=== PATIENT | female | born 1975 | race Two or more races ===

== ENCOUNTER 2020-08-21 14:10 | Emergency (ER) | payer SELFPAY ==
[~2020-08-21] VITALS: Ht 160 cm; Wt 77.2 kg
[2020-08-21 14:11] VITALS: BP 136/83
[2020-08-21] MEDS ORDERED: LIDOCAINE 2% Multi-Dose 20 ML VIAL. IJ ONE (15:15)
[2020-08-21] MEDS ORDERED: DIPH,PERTUSS(ACELL),TET VAC/PF 0.5 ML SYRINGE. VAX IM ONE (15:45)
[2020-08-21] MEDS ORDERED: CEPH750C9 PO (15:47)
--- NOTE | 2020-08-21 15:47 | ED.ADGEN ---
Past Medical History Past Medical History: No Pertinent History Past Surgical History: No Surgical History Smoking Status: Never Smoker Alcohol Use: Rarely General Adult EDM: Chief Complaint: LACERATION/AVULSION HPI: HPI: Patient is a 45 year old female who presents emergency department with complaints of a laceration to the back of her left heel since 9 PM last night. Patient states she was at a store when she accidentally had a door hit the back of her left heel. She is unsure when her last tetanus shot was. She denies any decreased range of motion of her left foot or ankle. She denies any ankle pain. The patient denies any fever. She reports that she tried to put a Band-Aid over the site but it continues to bleed. Patient currently rates her pain a 4 out of 10 on the pain scale, she denies any alleviating factors, the pain is worse with palpation and movement. Review of Systems: Review of Systems: Complete ROS is negative unless otherwise noted in HPI. Current Medications: Current Medications Medications (Trade) Dose Ordered Sig/Michelle Start Time Stop Time Status Last Admin Dose Admin Lidocaine HCl (Lidocaine 2% 20ml Vial) 20 ml 1X ONCE 08/21/20 15:15 08/21/20 15:16 DC 08/21/20 14:58 20 ML Allergies: Allergies: Allergies Coded Allergies Type Severity Reaction Last Updated Verified No Known Drug Allergies 08/21/20 No Physical Exam: PE: See Above Constitutional: Well developed, well nourished, no acute distress, non-toxic appearance. [] HENT: Normocephalic, atraumatic, bilateral external ears normal, nose normal. [] Eyes: PERRLA, EOMI, conjunctiva normal, no discharge. [] Neck: Normal range of motion, no stridor. [] Cardiovascular:Heart rate regular rhythm, no murmur [] Lungs & Thorax: Respirations even and unlabored, no retractions, no respiratory distress Skin: Warm, dry, no erythema, no rash; laceration to posterior left ankle approximately 6 cm, no visible foreign body, no visible tendon, bleeding controlled Back: No tenderness, no CVA tenderness. [] Extremities: Lower left extremity: No bony tenderness, no crepitus, no obvious deformity, full plantar extension and flexion, 2+ pedal pulse, no tenderness, no cyanosis, no clubbing, ROM intact, no edema. [] Neurologic: Alert and oriented X 3, normal motor function, normal sensory function, no focal deficits noted. [] Psychologic: Affect normal, judgement normal, mood normal. [] Current Patient Data: Vital Signs: Vital Signs Date Time Temp Pulse Resp B/P (MAP) Pulse Ox O2 Delivery O2 Flow Rate FiO2 08/21/20 14:11 98.2 82 18 136/83 (100) 98 Room Air 98.2 EKG: EKG: [] Heart Score: C/O Chest Pain: No Risk Factors: Risk Factors: DM, Current or recent (<one month) smoker, HTN, HLP, family history of CAD, obesity. Risk Scores: Score 0 - 3: 2.5% MACE over next 6 weeks - Discharge Home Score 4 - 6: 20.3% MACE over next 6 weeks - Admit for Clinical Observation Score 7 - 10: 72.7% MACE over next 6 weeks - Early Invasive Strategies Radiology/Procedures: Radiology/Procedures: Laceration Repair by me: Anesthesia: 2% lidocaine locally Location: Left heel Tendon/Joint/Nerves: No injury Foreign body: None detected after copious irrigation and exploration with NS and chlorhexidine Technique: 13 simple Interrupted Sutures with 3-0 Ethilon Complexity: No subcutaneous sutures/mucosal repair/edge excision Post Closure Length: 6 cm Patient's bleeding was easily controlled in the department and there is no indication of anemia. No evidence of compartment syndrome, neurologic injury, vascular injury, open joint, tendon laceration, or foreign body. Patient is appropriate for outpatient follow up. [] [] Course & Med Decision Making: Course & Med Decision Making Pertinent Labs and Imaging studies reviewed. (See chart for details) [] Dragon Disclaimer: Dragon Disclaimer: This electronic medical record was generated, in whole or in part, using a voice recognition dictation system. Departure Departure Impression: Primary Impression: Laceration of left heel without complication Additional Impression: Need for Tdap vaccination Disposition: 01 DC HOME SELF CARE/HOMELESS Condition: STABLE Referrals: NO PCP (PCP) Patient Instructions: Laceration Care, Adult, [id number] Additional Instructions: Fill the prescription and use it as directed. Keep the area clean and dry. You may take Tylenol or ibuprofen as needed for pain. Keep the dressing that was placed today on for 24 hours then change the dressing twice a day and wash the affected area with soap and water. Leave the wound open to air after the first 2 days, follow-up with your primary care doctor, or return to the emergency room in 10-14 days to have the sutures removed, sooner if you develop signs of infection including: redness, warmth, drainage, or a fever. [facility] [address] [place] [address] [facility] [address] [place] [address] [facility] [address] [place] [address] [facility] [address] [place] [address] [facility] [address] [place] [address] [address] [place] [address] [facility] [address] [place] [address] [facility] [address] [place] [address] [facility] [address] [place] [address] [facility] [address] [place] [address] Scripts Cephalexin (KEFLEX) 750 Mg Capsule 1 CAP PO TID for 7 Days, #21 CAP 0 Refills Prov: SHI MICHELLE APRN 08/21/20 Problem Qualifiers Primary Impression: Laceration of left heel without complication Encounter type: initial encounter Qualified Codes: S91.312A - Laceration without foreign body, left foot, initial encounter SHI MICHELLE TILE SETTER SUPERVISOR Aug 21, 2020 15:47
== END 2020-08-21 16:10 | disposition home or self-care (01) ==
LOC: ER 14:10
DX: S91.012A Laceration without foreign body, left ankle, initial encounter (principal); W22.8XXA Striking against or struck by other objects, initial encounter; Y93.89 Activity, other specified; Y92.89 Other specified places as the place of occurrence of the external cause; Y99.8 Other external cause status
CPT/HCPCS: 12002; 99283

== ENCOUNTER 2020-09-04 10:43 | Emergency (ER) | payer SELFPAY ==
[~2020-09-04] VITALS: Ht 160 cm; Wt 78.0 kg
[~2020-09-04 10:43] MED LIST: CEPH750C9 PO
[2020-09-04 11:57] VITALS: BP 114/53
--- NOTE | 2020-09-04 12:11 | ED.ADGEN ---
Past Medical History Past Medical History: No Pertinent History Past Surgical History: No Surgical History Smoking Status: Never Smoker Alcohol Use: Rarely General Adult EDM: Chief Complaint: SUTURE/STAPLE REMOVAL HPI: HPI: Patient is a 45 year old female who presents emergency department with need for suture removal. Patient reports that she was here on August 21 and had sutures placed in the back of her left heel. Patient had accidentally struck the back of her left heel with a door which is what caused the laceration. She denies any numbness, tingling, weakness, or decreased range of motion of the affected foot. She denies any fever, erythema, warmth, purulent drainage, or bleeding from the suture site. She currently denies any pain. Review of Systems: Review of Systems: Complete ROS is negative unless otherwise noted in HPI. Allergies: Allergies: Allergies Coded Allergies Type Severity Reaction Last Updated Verified No Known Drug Allergies 08/21/20 No Physical Exam: PE: See Above Constitutional: Well developed, well nourished, no acute distress, non-toxic appearance. [] HENT: Normocephalic, atraumatic, bilateral external ears normal, nose normal. [] Eyes: PERRLA, EOMI, conjunctiva normal, no discharge. [] Neck: Normal range of motion, no stridor. [] Cardiovascular:Heart rate regular rhythm Lungs & Thorax: Respirations even and unlabored, no retractions, no respiratory distress Skin: Warm, dry, no erythema, no rash; 13 sutures to the heel of the left foot, mild surrounding erythema, no crusting, no warmth, no purulent drainage, laceration edges are well approximated. [] Extremities: No cyanosis, ROM intact, no edema. [] Neurologic: Alert and oriented X 3, normal sensation, normal movement, no focal deficits noted. [] Psychologic: Affect normal, judgement normal, mood normal. [] Current Patient Data: Vital Signs: Vital Signs Date Time Temp Pulse Resp B/P (MAP) Pulse Ox O2 Delivery O2 Flow Rate FiO2 09/04/20 11:57 98.3 82 16 114/53 (73) 100 Room Air 98.3 EKG: EKG: [] Heart Score: C/O Chest Pain: No Risk Scores: Score 0 - 3: 2.5% MACE over next 6 weeks - Discharge Home Score 4 - 6: 20.3% MACE over next 6 weeks - Admit for Clinical Observation Score 7 - 10: 72.7% MACE over next 6 weeks - Early Invasive Strategies Radiology/Procedures: Radiology/Procedures: [] Course & Med Decision Making: Course & Med Decision Making Pertinent Labs and Imaging studies reviewed. (See chart for details) Sutures removed by nursing staff, see nursing note [] Dragon Disclaimer: Dragon Disclaimer: This electronic medical record was generated, in whole or in part, using a voice recognition dictation system. Departure Departure Impression: Primary Impression: Encounter for removal of sutures Disposition: 01 DC HOME SELF CARE/HOMELESS Condition: STABLE Referrals: NO PCP (PCP) Patient Instructions: Suture Removal-Brief Additional Instructions: Follow the provided instructions. You can continue to apply antibiotic ointment twice daily until the redness completely resolves. SHI MICHELLE APRN Sep 04, 2020 12:11
== END 2020-09-04 12:25 | disposition home or self-care (01) ==
LOC: ER 10:43
DX: S91.312D Laceration without foreign body, left foot, subsequent encounter (principal); Y28.8XXD Contact with other sharp object, undetermined intent, subsequent encounter
CPT/HCPCS: 99282

== ENCOUNTER 2021-04-08 23:14 | Emergency (ER) | payer SELFPAY ==
[~2021-04-08] VITALS: Ht 160 cm; Wt 77.3 kg
--- NOTE | 2021-04-08 23:56 | PHYS DOC ---
Past Medical History Past Medical History: No Pertinent History Past Surgical History: No Surgical History Smoking Status: Never Smoker Alcohol Use: Rarely General Adult EDM: Chief Complaint: ABDOMINAL PAIN HPI: HPI: Patient is a 46-year-old female resenting for abdominal pain. Patient is Syriac-speaking and so history is partly obtained by myself with cube machine tender present. Reports onset of symptoms was 48 hours ago after eating traditional Syriac soup. Nothing known makes better, p.o. intake makes worse. Patient describes generalized abdominal pain that is worse in epigastric region. She has been extremely nauseous and has had x1 episode of nonbloody nonbilious emesis. She reports ongoing pain that she feels is worsening prompting her to come in for evaluation. She denies any known medical issues, takes no medications on a daily basis. Admits to prior cholecystectomy. No tobacco use, social alcohol use, no illicit drug use. Review of Systems: Review of Systems: Fourteen body systems of review of systems have been reviewed. See HPI for pertinent positives and negative responses, other morrissey all other systems are negative, non-pertinent or non-contributory Heart Score: C/O Chest Pain: No HEART Score for Chest Pain: HEART Score for Chest Pain Response (Comments) Value History Slighlty/Non-Suspicious 0 ECG Normal 0 Age >45 - < 65 1 Risk Factors 1 or 2 Risk Factors 1 Troponin < Normal Limit 0 Total 2 Risk Factors: Risk Factors: DM, Current or recent (<one month) smoker, HTN, HLP, family history of CAD, obesity. Risk Scores: Score 0 - 3: 2.5% MACE over next 6 weeks - Discharge Home Score 4 - 6: 20.3% MACE over next 6 weeks - Admit for Clinical Observation Score 7 - 10: 72.7% MACE over next 6 weeks - Early Invasive Strategies Allergies: Allergies: Allergies Coded Allergies Type Severity Reaction Last Updated Verified No Known Drug Allergies 08/21/20 No Physical Exam: PE: Constitutional: Age-appropriate, well-developed, ambulatory, in moderate distress due to pain but is nontoxic in overall appearance HENT: Normocephalic, atraumatic, bilateral external ears normal, oropharynx moist, no oral exudates, nose normal. Eyes: PERRLA, EOMI, conjunctiva normal, no discharge. Neck: Normal range of motion, no tenderness, supple, no stridor. Cardiovascular: Heart rate regular, sinus rhythm, no murmurs rubs or gallops Lungs & Thorax: Bilateral breath sounds clear to auscultation Abdomen: Bowel sounds normal, soft, generalized tenderness with voluntary guarding present, no rebound, no masses, no pulsatile masses. Nonsurgical abdomen, no peritoneal signs Skin: Warm, dry, no erythema, no rash. Back: No tenderness, no CVA tenderness. Extremities: No tenderness, no cyanosis, no clubbing, ROM intact, no edema. Neurologic: Alert and oriented X 3, grossly normal motor & sensory function, no focal deficits noted. Psychologic: Anxious affect and mood Current Patient Data: Labs: Laboratory Tests Test 04/09/21 00:02 04/09/21 00:03 04/09/21 00:12 Urine Collection Type Unknown Urine Color Yellow Urine Clarity Clear Urine pH 7.0 Urine Specific [place] <=1.005 Urine Protein Negative mg/dL Urine Glucose (UA) Negative mg/dL Urine Ketones (Stick) Negative mg/dL Urine Blood Negative Urine Nitrite Negative Urine Bilirubin Small Urine Urobilinogen Dipstick 0.2 mg/dL Urine Leukocyte Esterase Negative Urine RBC 0 /HPF Urine WBC 0 /HPF Urine Squamous Epithelial Cells Few /LPF Urine Bacteria Few /HPF Bedside Urine HCG, Qualitative Hcg negative White Blood Count 9.0 x10^3/uL Red Blood Count 4.18 x10^6/uL Hemoglobin 8.1 g/dL Hematocrit 26.8 % Mean Corpuscular Volume 64 fL Mean Corpuscular Hemoglobin 19 pg Mean Corpuscular Hemoglobin Concent 30 g/dL Red Cell Distribution Width 20.9 % Platelet Count 314 x10^3/uL Neutrophils (%) (Auto) 85 % Lymphocytes (%) (Auto) 7 % Monocytes (%) (Auto) 6 % Eosinophils (%) (Auto) 2 % Basophils (%) (Auto) 1 % Neutrophils # (Auto) 7.6 x10^3/uL Lymphocytes # (Auto) 0.6 x10^3/uL Monocytes # (Auto) 0.6 x10^3/uL Eosinophils # (Auto) 0.1 x10^3/uL Basophils # (Auto) 0.1 x10^3/uL Platelet Estimate Adequate Hypochromasia Marked Anisocytosis Mod Microcytosis Marked Sodium Level 135 mmol/L Potassium Level 3.3 mmol/L Chloride Level 100 mmol/L Carbon Dioxide Level 27 mmol/L Anion Gap 8 Blood Urea Nitrogen 7 mg/dL Creatinine 0.8 mg/dL Estimated GFR (Cockcroft-Gault) 77.2 BUN/Creatinine Ratio 9 Glucose Level 135 mg/dL Calcium Level 8.3 mg/dL Total Bilirubin 3.4 mg/dL Aspartate Amino Transf (AST/SGOT) 224 U/L Alanine Aminotransferase (ALT/SGPT) 668 U/L Alkaline Phosphatase 237 U/L Troponin I High Sensitivity < 4 ng/L Total Protein 7.9 g/dL Albumin 3.8 g/dL Albumin/Globulin Ratio 0.9 Lipase 130 U/L Current Medications Medications (Trade) Dose Ordered Sig/Michelle Route PRN Reason Start Time Stop Time Status Last Admin Dose Admin Iohexol (Omnipaque 300 Mg/ml) 75 ml 1X ONCE IV 04/09/21 01:00 04/09/21 01:01 DC 04/09/21 00:49 Info (CONTRAST GIVEN -- Rx MONITORING) 1 each PRN DAILY PRN MC SEE COMMENTS 04/09/21 00:45 04/11/21 00:44 Sodium Chloride 1,000 ml @ 1,000 mls/hr 1X ONCE IV 04/09/21 01:30 04/09/21 02:29 04/09/21 01:16 Ondansetron HCl (Zofran) 4 mg 1X ONCE IVP 04/09/21 01:30 04/09/21 01:31 DC 04/09/21 01:16 Fentanyl Citrate (Fentanyl 2ml Vial) 75 mcg 1X ONCE IVP 04/09/21 01:30 04/09/21 01:31 DC 04/09/21 01:16 Ondansetron HCl (Zofran) 4 mg 1X ONCE IVP 04/09/21 01:30 04/09/21 01:31 DC Vital Signs: Vital Signs Date Time Temp Pulse Resp B/P (MAP) Pulse Ox O2 Delivery O2 Flow Rate FiO2 04/09/21 00:00 98.2 85 13 139/67 (91) 95 Room Air 98.2 Vital Signs Date Time Temp Pulse Resp B/P (MAP) Pulse Ox O2 Delivery O2 Flow Rate FiO2 04/09/21 01:16 Room Air 04/09/21 00:00 98.2 85 13 139/67 (91) 95 98.2 EKG: EKG: EKG ordered and interpreted by myself at 0112 hrs. as sinus rhythm at 83 bpm, unremarkable intervals, no axis deviation, no obvious ischemic findings, no STEMI Radiology/Procedures: Radiology/Procedures: CT ABDOMEN+PELVIS W Clinical Indication: Reason: EPIGASTRIC PAIN / Spl. Instructions: / History: Comparison: None. Technique: Helical CT imaging of the abdomen and pelvis is performed after 75 cc of Omnipaque 300 IV contrast. Oral contrast not administered. Findings: Lung bases are clear. Cardiac size normal. The extra hepatic duct is prominent, may be due to postcholecystectomy state. No filling defect is seen. The liver, spleen, pancreas, adrenal glands, abdominal aorta, and kidneys are normal. The stomach is unremarkable. The appendix is normal. There is no dilated small bowel. Scattered stool in the colon. There is no colon wall thickening. No abdominal adenopathy or free fluid. The uterus is anteverted. 3.6 cm left adnexal cyst. No pelvic free fluid. Urinary bladder is normal. No acute bone abnormality. IMPRESSION: 1. No acute abdominal or pelvic abnormality. 2. Small left adnexal cyst is probably physiologic. No pelvic free fluid. Electronically signed by: Celso Hilton MD (04/09/2021 1:49 AM) [facility] Course & Med Decision Making: Course & Med Decision Making ABCs unremarkable HPI physical exam and comprehensive ER work-up nonconcerning for any emergent or surgical issues I disclosed entirety of ER findings with specific mention to transaminitis and patient without a gallbladder and a nonacute abdomen. Symptoms improved with administered IV fluids, pain medication and antiemetic I discussed most likely diagnoses of viral gastritis versus other intra- abdominal abnormalities. Discussed low risk for any emergent or surgical problems based on comprehensive ER work-up today Patient has good access to primary care physician, advised close outpatient follow-up for repeat labs to monitor transaminitis and to ensure continued symptomatic improvement Strict return precautions discussed and understood by patient and family member at rest prior to ER departure Simona Disclaimer: Simona Disclaimer: This electronic medical record was generated, in whole or in part, using a voice recognition dictation system. Departure Departure Impression: Primary Impression: Abdominal pain Additional Impressions: Nausea and vomiting Transaminitis Disposition: HOME / SELF CARE / HOMELESS Condition: IMPROVED Referrals: NO PCP (PCP) Patient Instructions: Abdominal Pain (Nonspecific), Nausea and Vomiting Scripts Ondansetron (ONDANSETRON ODT) 4 Mg Tab.rapdis 1 TAB PO PRN Q6-8HRS for nausea, #16 TAB Prov: MARIE ANDREWS DO 04/09/21 MARIE ANDREWS DO Apr 08, 2021 23:56
[2021-04-09 00:14] LABS: BILIRUBIN,URINE SMALL (NEG); CLARITY,URINE CLEAR; COLOR,URINE YELLOW; NITRITE,URINE NEGATIVE (NEG); PROTEIN,URINE NEGATIVE (NEG-TRACE); UROBILINOGEN,URINE 0.2 mg/dL (0.2 mg/dL)
[2021-04-09 00:19] LABS: BASO # 0.1 x10^3/uL (0.0-0.2); BASO % 1 % (0-3); EOS # 0.1 x10^3/uL (0.0-0.7); EOS % 2 % (0-3); HEMATOCRIT 26.8 % (36.0-47.0); HEMOGLOBIN 8.1 g/dL (12.0-15.5); LYMPH # 0.6 x10^3/uL (1.0-4.8); LYMPH % 7 % (24-48); MEAN CORPUSCULAR HEMOGLOBIN 19 pg (25-35); MEAN CORPUSCULAR HGB CONC 30 g/dL (31-37); MEAN CORPUSCULAR VOLUME 64 fL (79-100); MONO # 0.6 x10^3/uL (0.0-1.1); MONO % 6 % (0-9); NEUT # 7.6 x10^3/uL (1.8-7.7); NEUT % 85 % (31-73); PLATELET COUNT 314 x10^3/uL (140-400); RED BLOOD COUNT 4.18 x10^6/uL (3.50-5.40); RED CELL DISTRIBUTION WIDTH 20.9 % (11.5-14.5)
[2021-04-09 00:20] LABS: BACTERIA,URINE FEW /HPF (0-FEW); RBC,URINE 0 /HPF (0-2); WBC,URINE 0 /HPF (0-4)
[2021-04-09 00:29] LABS: CALCIUM 8.3 mg/dL (8.5-10.1); CREATININE 0.8 mg/dL (0.6-1.0); GFR 77.2; POTASSIUM 3.3 mmol/L (3.5-5.1)
[2021-04-09 00:35] LABS: ALBUMIN 3.8 g/dL (3.4-5.0); ALBUMIN/GLOBULIN RATIO 0.9 (1.0-1.7); TOTAL BILIRUBIN 3.4 mg/dL (0.2-1.0); TOTAL PROTEIN 7.9 g/dL (6.4-8.2)
[2021-04-09] MEDS ORDERED: CONTRAST GIVEN. MC PRN (00:45)
[2021-04-09 00:56] LABS: ANISOCYTOSIS MOD; HYPOCHROMIA MARKED; MICROCYTOSIS MARKED; PLT ESTIMATE ADEQUATE (ADEQUATE)
[2021-04-09] MEDS ORDERED: IOHEXOL 300 MG/ML 100ML VIAL. IV ONE (01:00)
[2021-04-09 01:09] VITALS: BP 158/67
[2021-04-09] MEDS ORDERED: ONDANSETRON PF 4 MG/2 ML VIAL. IVP ONE ×2 (01:30)
[2021-04-09] MEDS ORDERED: IV NORMAL SALINE 1000ML BAG 1,000 ML IV ONE (01:30)
[2021-04-09] MEDS ORDERED: fentaNYL PF VIAL 100 MCG/2 ML VIAL IVP ONE (01:30)
--- NOTE | 2021-04-09 01:44 | EKG ---
[facility] [address] [place] [address] Test Date: 2021-04-09 Test Time: 01:06:20 Pat Name: DOYLE KNIGHT Department: Room: Gender: F Regional Retail Sales Manager: : 1975 Requested By: MARIE ANDREWS Order Number: [id number] Reading MD: aMuro Luis MD Measurements Intervals [place] Rate: 83 P: 36 [place]: 146 QRS: 26 QRSD: 80 T: 28 QT: 358 QTc: 426 Interpretive Statements SINUS RHYTHM Electronically Signed On 04-09-2021 9:00:42 NATURAL RESOURCE SPECIALIST by Mauro Luis MD
--- NOTE | 2021-04-09 01:52 | RAD ---
PQRS Compliance Statement: One or more of the following individualized dose reduction techniques were utilized for this examinat ion: 1. Automated exposure control 2. Adjustment of the mA and/or kV according to patient size 3. Use of iterative reconstruction technique CT ABDOMEN+PELVIS W Clinical Indication: Reason: EPIGASTRIC PAIN / Spl. Instructions: / History: Comparison: None. Technique: Helical CT imaging of the abdomen and pelvis is performed after 75 cc of Omnipaque 300 IV contrast. Oral contrast not administered. Findings: Lung bases are clear. Cardiac size normal. The extra hepatic duct is prominent, may be due to postcholecystectomy state. No filling defect is se en. The liver, spleen, pancreas, adrenal glands, abdominal aorta, and kidneys are normal. The stomach is unremarkable. The appendix is normal. There is no dilated small bowel. Scattered stool in the colon. There is no colon wall thickening. No abdominal adenopathy or free fluid. The uterus is anteverted. 3.6 cm left adnexal cyst. No pelvic free fluid. Urinary bladder is normal. No acute bone abnormality. IMPRESSION: 1. No acute abdominal or pelvic abnormality. 2. Small left adnexal cyst is probably physiologic. No pelvic free fluid. Electronically signed by: Celso Hilton MD (04/09/2021 1:49 AM) [facility]
[2021-04-09] MEDS ORDERED: ONDA4TAB12 PO (02:39)
--- NOTE | 2021-04-09 16:42 | NUR ---
IP: Pt currently in the ED. Notified Sarah to please let pt know of negative covid test.
[2021-04-09] MEDS ORDERED: TRAM50TA PO (18:35)
== END 2021-04-09 02:56 | disposition home or self-care (01) ==
LOC: ER 23:14
DX: R10.84 Generalized abdominal pain (principal); Z20.822 Contact with and (suspected) exposure to COVID-19; R11.2 Nausea with vomiting, unspecified; R74.01 Elevation of levels of liver transaminase levels; Z90.49 Acquired absence of other specified parts of digestive tract
CPT/HCPCS: 36415; 74177; 80053; 81001; 81025; 83690; 84484; 85025; 87426; 93005; 96361; 96374; 96375; 99285; J2405; J3010; J7030; Q9967; U0003; U0005

== ENCOUNTER 2021-04-09 13:50 | Emergency (ER) | payer SELFPAY ==
[~2021-04-09] VITALS: Ht 160 cm; Wt 81.0 kg
[~2021-04-09 13:50] MED LIST changes: +ONDA4TAB12 PO
[2021-04-09] MEDS ORDERED: IV NORMAL SALINE 1000ML BAG 1,000 ML IV ONE (15:45)
[2021-04-09] MEDS ORDERED: ONDANSETRON PF 4 MG/2 ML VIAL. IVP ONE (15:45)
[2021-04-09] MEDS ORDERED: fentaNYL PF VIAL 100 MCG/2 ML VIAL IVP ONE ×2 (15:45→17:30)
[2021-04-09 15:48] LABS: BILIRUBIN,URINE MODERATE (NEG); CLARITY,URINE CLEAR; COLOR,URINE AMBER; NITRITE,URINE NEGATIVE (NEG); PROTEIN,URINE NEGATIVE (NEG-TRACE); UROBILINOGEN,URINE 0.2 mg/dL (0.2 mg/dL)
--- NOTE | 2021-04-09 15:52 | PHYS DOC ---
Past Medical History Past Medical History: No Pertinent History (TARAN SEVILLA APRN) Past Surgical History: Cholecystectomy (TARAN SEVILLA APRN) Smoking Status: Never Smoker Alcohol Use: None (TARAN SEVILLA APRN) General Adult EDM: Chief Complaint: ABDOMINAL PAIN HPI: HPI: Patient is a 46 year old female who presents with right upper quadrant pain that radiates through to her back. Patient was seen in the ER last night and d ischarged home. Patient states that the pain has increased since yesterday. Patient is also reporting nausea and vomiting. Denies fever or diarrhea. Nothing makes pain better or worse. Denies medical history . Denies taking any daily medications. No tobacco, alcohol, or drug use (TARAN SEVILLA APRN) Review of Systems: Review of Systems: ROS At least 10 ROS systems have been reviewed and are negative except as documented in the HPI. General: Negative except as outlined in HPI above. Skin: Negative except as outlined in HPI above. HEENT: Negative except as outlined in HPI above. Neck: Negative except as outlined in HPI above. Respiratory: Negative except as outlined in HPI above.. Cardiovascular: Negative except as outlined in HPI above. Abdomen: Negative except as outlined in HPI above. : Negative except as outlined in HPI above. Back/MSK: Negative except as outlined in HPI above. Neuro: Negative except as outlined in HPI above. Psych: Negative except as outlined in HPI above. (TARAN SEVILLA APRN) Heart Score: C/O Chest Pain: No Risk Factors: Risk Factors: DM, Current or recent (<one month) smoker, HTN, HLP, family history of CAD, obesity. Risk Scores: Score 0 - 3: 2.5% MACE over next 6 weeks - Discharge Home Score 4 - 6: 20.3% MACE over next 6 weeks - Admit for Clinical Observation Score 7 - 10: 72.7% MACE over next 6 weeks - Early Invasive Strategies (TARAN SEVILLA APRN) Allergies: Allergies: Allergies Coded Allergies Type Severity Reaction Last Updated Verified No Known Drug Allergies 08/21/20 No (TARAN SEVILLA APRN) Physical Exam: PE: Constitutional: Well developed, well nourished, no acute distress, non-toxic appearance. [] HENT: Normocephalic, atraumatic, bilateral external ears normal, oropharynx moist, no oral exudates, nose normal. [] Eyes: PERRLA, EOMI, conjunctiva normal, sclera has a yellow tent Neck: Normal range of motion, no tenderness, supple, no stridor. [] Cardiovascular:Heart rate regular rhythm, no murmur [] Lungs & Thorax: Bilateral breath sounds clear to auscultation [] Abdomen: Bowel sounds normal, soft, right upper quadrant tenderness, no masses Skin: Warm, dry, no erythema, no rash. [] Back: No tenderness, no CVA tenderness. [] Extremities: No tenderness, no cyanosis, no clubbing, ROM intact, no edema. [] Neurologic: Alert and oriented X 3, normal motor function, normal sensory function, no focal deficits noted. [] Psychologic: Affect normal, judgement normal, mood normal. [] (TARAN SEVILLA APRN) Current Patient Data: Labs: Laboratory Tests Test 04/09/21 15:07 POC Urine HCG, Qualitative Hcg negative (Negative) Vital Signs: Vital Signs Date Time Temp Pulse Resp B/P (MAP) Pulse Ox O2 Delivery O2 Flow Rate FiO2 04/09/21 15:00 97.8 75 18 119/75 (90) 100 Room Air 97.8 (TARAN SEVILLA APRN) EKG: EKG: [] (TARAN SEVILLA APRN) Radiology/Procedures: Radiology/Procedures: []INDICATION: Reason: ruq pain / Spl. Instructions: / History: COMPARISON: CT from same day TECHNIQUE: Grayscale and color ultrasound images obtained through the abdomen. FINDINGS: Pancreas: Partially seen secondary to overlying structures obscuring. Liver: Prominent in size. Mildly echogenic. Gallbladder: Removed Common Bile Duct: Prominent in size measuring up to about 9 mm which is a common finding postoperatively. Right Kidney: No hydronephrosis. Left Kidney: No hydronephrosis. Limited visualization secondary to overlying structures obscuring. Spleen: Prominent in size measuring up to 13 cm. Aorta/IVC: Partially seen without aneurysmal dilatation of the abdominal aorta IMPRESSION: * Postcholecystectomy changes with dilated bile ducts which is a common finding postoperatively. Electronically signed by: Kunal Obregon MD (04/09/2021 4:55 PM) [id number] (TARAN SEVILLA APRN) Course & Med Decision Making: Course & Med Decision Making Pertinent Labs and Imaging studies reviewed. (See chart for details) [] 46-year-old female presents with right upper quadrant pain that radiates into her back, nausea and vomiting. Patient was seen in the ER last night for similar symptoms but states that pain has increased. Pain and nausea treated in the ER. AST, ALT, have improved since yesterday. Ultrasound was unremarkable. All other labs are unremarkable. Patient was still reporting abdominal pain. Patient given second dose of fentanyl. Upon reassessment patient states that pain has improved after fluids and medi cation. Patient has Zofran at home for nausea as prescribed yesterday. Sending patient home with pain medication. Advised patient she needs to call her PCP make a follow-up appointment tomorrow. Discussed strict return precautions. Patient is hemodynamically stable. (TARAN SEVILLA APRN) Kayleenon Disclaimer: Simona Disclaimer: This electronic medical record was generated, in whole or in part, using a voice recognition dictation system. (TARAN SEVILLA APRN) Departure Departure Impression: Primary Impression: Abdominal pain Qualified Codes: R10.11 - Right upper quadrant pain Additional Impression: Nausea Disposition: 01 HOME / SELF CARE / HOMELESS Condition: STABLE Referrals: NO PCP (PCP) Patient Instructions: Abdominal Pain, [id number] Additional Instructions: You were seen in the emergency room for right upper quadrant abdominal pain. Ultrasound was unremarkable. There were no changes in your labs. Continue taking your Zofran at home that you were prescribed yesterday. Follow-up with your primary care doctor tomorrow. Return to emergency room if you have worsening symptoms or concerns. EMERGENCY DEPARTMENT GENERAL DISCHARGE INSTRUCTIONS Thank you for coming to [facility] Emergency Department (ED) today and trusting us with you care. We trust that you had a positive experience in our Emergency Department. If you wish to speak to the department management, you may call the Director at [phone]. YOUR FOLLOW UP INSTRUCTIONS ARE FOLLOWS: 1. Do you have a private Doctor? If you do not have a private doctor, please ask for a resource list of physicians or clinics that may be able to assist you with follow up care. 2. The Emergency Physicain has interpreted your x-rays. The X-Ray specialist w ill also review them. If there is a change in the findings, you will be notified in 48 hours when at all possible. 3. A lab test or culture has been done, your results will be reviewed and you will be notified if you need a change in treatment. ADDITIONAL INSTRUCTIONS AND INFORMATION: 1. Your care today has been supervised by a physician who is specially trained in emergency care. Many problems require more than one evaluation for a complete diagnosis and treatment. We recommend that you schedule your follow up appointment as recommended to ensure complete treatment of you illness or injury. If you are unable to obtain follow up care and continue to have a problem, or if your condition worsens, we recommend that you return to the ED. 2. We are not able to safely determine your condition over the phone nor are we able to give sound medical advice over the phone. For these safety reasons, if you call for medical advice we will ask you to come to the ED for further evaluation. 3. If you have any questions regarding these discharge instructions please call the ED at [phone]. SAFETY INFORMATION: In the interest of safety, wellness, and injury prevention; we encourage you to wear your sealbelt, if you smoke; quite smoking, and we encourage family to use a protective helmet for bicycling and other sporting events that present an increased risk for head injury. IF YOUR SYMPTOMS WORSEN OR NEW SYMPTOMS DEVELOP, OR YOU HAVE CONCERNS ABOUT YOUR CONDITION; OR IF YOUR CONDITION WORSENS WHILE YOU ARE WAITING FOR YOUR FOLLOW UP APPOINTMENT; EITHER CONTACT YOUR PRIMARY CARE DOCTOR, THE PHYSICIAN WHOSE NAME AND NUMBER YOU WERE GIVEN, OR RETURN TO THE ED IMMEDIATELY. Scripts Tramadol Hcl (TRAMADOL HCL) 50 Mg Tablet 50 MG PO Q6HRS PRN for PAIN for 2 Days, #8 TAB Prov: NELLI SANDHU DO 04/09/21 TARAN SEVILLA APRN Apr 09, 2021 15:52 NELLI SANDHU DO Apr 09, 2021 18:36
[2021-04-09 15:56] LABS: BACTERIA,URINE FEW /HPF (0-FEW)
[2021-04-09 15:57] LABS: RBC,URINE OCC /HPF (0-2); WBC,URINE OCC /HPF (0-4)
[2021-04-09 16:10] LABS: TOTAL BILIRUBIN 2.9 mg/dL (0.2-1.0)
--- NOTE | 2021-04-09 16:57 | RAD ---
INDICATION: Reason: ruq pain / Spl. Instructions: / History: COMPARISON: CT from same day TECHNIQUE: Grayscale and color ultrasound images obtained through the abdomen. FINDINGS: Pancreas: Partially seen secondary to overlying structures obscuring. Liver: Prominent in size. Mildly echogenic. Gallbladder: Removed Common Bile Duct: Prominent in size measuring up to about 9 mm which is a common finding postoperativ sukhdev. Right Kidney: No hydronephrosis. Left Kidney: No hydronephrosis. Limited visualization secondary to overlying structures obscuring. Spleen: Prominent in size measuring up to 13 cm. Aorta/IVC: Partially seen without aneurysmal dilatation of the abdominal aorta IMPRESSION: * Postcholecystectomy changes with dilated bile ducts which is a common finding postoperatively. Electronically signed by: Kunal Obregon MD (04/09/2021 4:55 PM) [id number]
[2021-04-09 17:19] LABS: BASO % 1 % (0-3); EOS # 0.2 x10^3/uL (0.0-0.7); EOS % 4 % (0-3); HEMOGLOBIN 7.8 g/dL (12.0-15.5); LYMPH # 0.9 x10^3/uL (1.0-4.8); LYMPH % 18 % (24-48); MEAN CORPUSCULAR HEMOGLOBIN 19 pg (25-35); MEAN CORPUSCULAR HGB CONC 30 g/dL (31-37); MEAN CORPUSCULAR VOLUME 65 fL (79-100); MONO # 0.6 x10^3/uL (0.0-1.1); MONO % 12 % (0-9); NEUT # 3.5 x10^3/uL (1.8-7.7); NEUT % 66 % (31-73); PLATELET COUNT 311 x10^3/uL (140-400); RED CELL DISTRIBUTION WIDTH 20.9 % (11.5-14.5); WHITE BLOOD COUNT 5.3 x10^3/uL (4.0-11.0)
[2021-04-09 17:25] LABS: CALCIUM 8.3 mg/dL (8.5-10.1); CREATININE 0.7 mg/dL (0.6-1.0); GFR 90.1; POTASSIUM 3.8 mmol/L (3.5-5.1)
[2021-04-09 17:31] LABS: ALBUMIN 3.4 g/dL (3.4-5.0); ALBUMIN/GLOBULIN RATIO 0.9 (1.0-1.7); TOTAL BILIRUBIN 2.9 mg/dL (0.2-1.0); TOTAL PROTEIN 7.3 g/dL (6.4-8.2)
[2021-04-09 17:45] LABS: ANISOCYTOSIS MOD; HYPOCHROMIA MARKED; MICROCYTOSIS MARKED; OVALOCYTES FEW; PLT ESTIMATE ADEQUATE (ADEQUATE); POIKILOCYTOSIS SLIGHT
[2021-04-09 18:22] VITALS: BP 163/92
[2021-04-09] MEDS ORDERED: TRAM50TA PO (18:35)
--- NOTE | 2021-04-09 23:45 | EKG ---
[facility] [address] [place] [address] Test Date: 2021-04-09 Test Time: 15:52:38 Pat Name: DOYLE KNIGHT Department: Room: Gender: F Rn Telephone Triage: : 1975 Requested By: TARAN SEVILLA Order Number: [id number] Reading MD: Mauro Luis MD Measurements Intervals [place] Rate: 71 P: 62 WV: 148 QRS: 60 QRSD: 78 T: 56 QT: 378 QTc: 411 Interpretive Statements SINUS RHYTHM Electronically Signed On 04-14-2021 14:10:50 COPY SUPERVISOR by Mauro Luis MD
== END 2021-04-09 18:35 | disposition home or self-care (01) ==
LOC: ER 13:50
DX: R10.11 Right upper quadrant pain (principal); R11.2 Nausea with vomiting, unspecified; Z90.49 Acquired absence of other specified parts of digestive tract
CPT/HCPCS: 36415; 76700; 80053; 81001; 81025; 82247; 83690; 83735; 85025; 93005; 96361; 96374; 96375; 96376; 99285; J2405; J3010; J7030